=== PATIENT | female | born 1985 | race Two or more races ===

== ENCOUNTER 2023-11-05 06:05 | Inpatient (IN) | payer MEDICAID ==
[2023-11-03 09:35] LABS: Basophils # (auto) 0.1 10 ^3/uL (0-0.2); Eosinophils # (auto) 0.2 10 ^3/uL (0-0.8); Hematocrit 39.1 % (36.0-46.0); Hemoglobin 12.6 g/dL (12.2-16.2); Lymphocytes % (auto) 34.9 % (10.0-50.0); Mean Corpuscular Volume 80.7 fL (80.0-100.0); Monocytes # (auto) 0.4 10 ^3/uL (0-1.3); Nucleated Red Blood Cells % 0.1 %; Red Blood Cells 4.85 10^6/uL (4.0-5.20)
[2023-11-03 09:36] LABS: Basophils % (auto) 0.9 % (0.0-2.0); Eosinophils % (auto) 2.9 % (0.0-7.0); Lymphocytes # (auto) 1.9 10 ^3/uL (0.4-5.4); Mean Corpuscular Hgb Conc. 32.2 g/dL (32.0-36.0); Monocytes % (auto) 7.9 % (0.0-12.0); Neutrophils # (auto) 2.9 10 ^3/uL (1.6-8.6); Neutrophils % (auto) 53.4 % (37.0-80.0); Red Cell Distribution Width 14.9 % (11.8-14.3); White Blood Cell 5.5 10^3/uL (4.4-10.8)
[2023-11-03 09:42] LABS: Urine Bacteria FEW /hpf (None Seen); Urine Blood Negative /uL (Negative); Urine Clarity HAZY (Clear); Urine Color Colorless (Yellow); Urine Protein, UAD Negative (Negative); Urine Specific Gravity 1.008 (1.001-1.035); Urine Urobilinogen Normal (Negative); Urine WBC 2 /hpf (0 - 5)
[2023-11-03 10:06] LABS: Alanine Aminotransferase 18 U/L (7-40); Albumin 4.6 g/dL (3.2-4.8); Alkaline Phosphatase 82 U/L (46-116); Anion Gap 5 (5-15); Aspartate Aminotransferase 18 U/L (13-40); BUN/Creatinine Ratio 9.5 (10.0-20.0); Blood Urea Nitrogen 6 mg/dL (9-23); Calcium 9.6 mg/dL (8.5-10.1); Carbon Dioxide 27 mmol/L (20-30); Chloride 107 mmol/L (98-107); Glucose 93 mg/dL (74-106); INR 1.02 (0.9-1.15); Partial Thromboplastin Time 32.1 SEC (24.5-34.5); Potassium 4.4 mmol/L (3.5-5.1); Prothrombin Time 10.7 sec (9.3-11.8); Sodium 139 mmol/L (136-145)
[2023-11-03 10:07] LABS: Bilirubin, Total 0.5 mg/dL (0.2-1.0); Total Protein 7.1 g/dL (5.7-8.2)
[~2023-11-05] VITALS: Ht 162.6 cm; Wt 110.0 kg
[~2023-11-05 06:05] MED LIST: LEV100T PO
[2023-11-05] MEDS: ceFAZolin 2 GM/D5W100ml 100 ML IV ONE (06:22)
[2023-11-05] MEDS: SUCCINYLCHOLINE CHLORIDE 20 MG/ML 10ML VIAL IV ONE (06:42)
[2023-11-05] MEDS ORDERED: PROPOFOL 10 MG/ML 20 ML IV ONE (06:47)
[2023-11-05] MEDS ORDERED: fentaNYL CITRATE 100 MCG/2 ML VL ONE (06:48)
[2023-11-05] MEDS: LIDOCAINE W/ EPINEPHRINE 1% 20ML VIAL ONE (07:08)
[2023-11-05] MEDS: BUPIVACAINE 0.25% INJ 50ML VIAL ONE (07:08)
[2023-11-05] MEDS ORDERED: ONDANSETRON HCL 4 MG/2 ML VIAL ONE (07:31)
[2023-11-05] MEDS ORDERED: DexAMETHasone SOD PHOS 10MG/1ML VIAL INJ ONE (07:31)
[2023-11-05] MEDS ORDERED: ROCURONIUM 10MG/ML 10ML VIAL IV ONE (07:36)
[2023-11-05] MEDS ORDERED: MEPERIDINE HCL (50 MG/ML) 1 ML VIAL ONE (07:37)
[2023-11-05] MEDS ORDERED: ePHEDrine SULFATE 50 MG/ML AMP ONE (08:01)
[2023-11-05] MEDS ORDERED: GLYCOPYRROLATE 0.2 MG/ML 1ML VIAL ONE (08:04)
[2023-11-05] MEDS ORDERED: ESMOLOL HCL 10 ML IV ONE (08:18)
[2023-11-05] MEDS ORDERED: SUGAMMADEX 200mg/2ml Vial (100MG/ML) IV ONE (08:38)
[2023-11-05 08:57] VITALS: O2SAT 100
[2023-11-05] MEDS ORDERED: ONDANSETRON HCL 4 MG/2 ML VIAL IV PRN ×3 (09:15→10:45)
[2023-11-05] MEDS ORDERED: MEPERIDINE HCL (25 MG/ML) 1ML VIAL IV PRN (09:15)
[2023-11-05] MEDS: LEVOTHYROXINE SODIUM 100 MCG TAB PO SCH (10:00)
[2023-11-05] MEDS: HYDROmorphone HCL 2 MG/ML VL/or syr IV PRN ×2 (10:01→15:24)
[2023-11-05] MEDS ORDERED: HYDROmorphone HCL 2 MG/ML VL/or syr IV PRN (10:15)
[2023-11-05] MEDS: SODIUM CHLORIDE 0.9% 1,000 ML IV SCH (10:40)
[2023-11-05] MEDS ORDERED: D5W/SOD CHL 0.45%/KCL 20MEQ 1,000 ML IV SCH (10:45)
[2023-11-05 14:35] VITALS: BP 115/65; PULSE 83; RESP 17; TEMP 97.6; O2SAT 94
[2023-11-05] MEDS: ceFAZolin 1GM/50ML 50 ML IV SCH (15:03)
[2023-11-05 17:00] VITALS: BP 122/72; PULSE 78; RESP 17; TEMP 97.6; O2SAT 94
[2023-11-05 19:50] VITALS: BP 103/59; PULSE 89; PULSE 92; RESP 18; TEMP 98; O2SAT 95
[2023-11-05 22:00] VITALS: BP 103/59; PULSE 89; RESP 18; TEMP 98; O2SAT 95
[2023-11-06 05:00] VITALS: BP 119/65; PULSE 83; RESP 18; TEMP 98.1; O2SAT 94
[2023-11-06 07:17] LABS: Basophils # (auto) 0 10 ^3/uL (0-0.2); Basophils % (auto) 0.1 % (0.0-2.0); Eosinophils # (auto) 0 10 ^3/uL (0-0.8); Eosinophils % (auto) 0.1 % (0.0-7.0); Hematocrit 33.3 % (36.0-46.0); Hemoglobin 10.9 g/dL (12.2-16.2); Lymphocytes # (auto) 1.6 10 ^3/uL (0.4-5.4); Lymphocytes % (auto) 15.9 % (10.0-50.0); Mean Corpuscular Hemoglobin 26.4 pg (28.0-32.0); Mean Corpuscular Hgb Conc. 32.9 g/dL (32.0-36.0); Mean Corpuscular Volume 80.3 fL (80.0-100.0); Monocytes # (auto) 0.8 10 ^3/uL (0-1.3); Monocytes % (auto) 8.1 % (0.0-12.0); Neutrophils # (auto) 7.6 10 ^3/uL (1.6-8.6); Neutrophils % (auto) 75.8 % (37.0-80.0); Nucleated Red Blood Cells % 0.1 %; Red Blood Cells 4.14 10^6/uL (4.0-5.20); Red Cell Distribution Width 14.2 % (11.8-14.3)
[2023-11-06 07:28] LABS: Alanine Aminotransferase 30 U/L (7-40); Alkaline Phosphatase 70 U/L (46-116); Anion Gap 8 (5-15); Aspartate Aminotransferase 34 U/L (13-40); Calcium 8.9 mg/dL (8.5-10.1); Carbon Dioxide 24 mmol/L (20-30); Chloride 107 mmol/L (98-107); Glucose 95 mg/dL (74-106); Potassium 3.5 mmol/L (3.5-5.1); Sodium 139 mmol/L (136-145)
[2023-11-06 07:29] LABS: Bilirubin, Total 0.6 mg/dL (0.2-1.0); Total Protein 6.1 g/dL (5.7-8.2)
[2023-11-06 07:45] LABS: BUN/Creatinine Ratio 9.4 (10.0-20.0); Blood Urea Nitrogen < 5 mg/dL (9-23)
[2023-11-06 08:00] VITALS: PULSE 73; RESP 18; O2SAT 95
[2023-11-06 10:25] VITALS: BP 104/55; PULSE 93; RESP 19; TEMP 98.4; O2SAT 96
[2023-11-06 10:27] LABS: CRP High Sensitivity 0.83 mg/dL (<1.0)
[2023-11-06] MEDS: ACETAMINOPHEN 325 MG TAB PO PRN ×2 (10:37→19:40)
[2023-11-06] MEDS: POTASSIUM CHL 20 Meq TABLET PO ONE (10:38)
[2023-11-06] MEDS ORDERED: HYDROcodone-ACET 5/325MG TAB PO PRN (11:15)
[2023-11-06 11:53] LABS: Magnesium 1.7 mg/dL (1.6-2.6)
[2023-11-06 13:08] VITALS: BP 109/54; PULSE 84; RESP 19; TEMP 98.7; O2SAT 97
[2023-11-06] MEDS: DOCUSATE SOD 100 MG CAP PO PRN (19:40)
[2023-11-06 19:50] VITALS: BP 112/56; PULSE 106; PULSE 84; PULSE 93; RESP 18; TEMP 99.1; O2SAT 93
[2023-11-06 22:00] VITALS: BP 112/56; PULSE 84; RESP 18; TEMP 99.1; O2SAT 93
[2023-11-07 05:00] VITALS: BP 109/72; PULSE 84; RESP 18; TEMP 98.4; O2SAT 94
[2023-11-07 06:08] LABS: Basophils # (auto) 0 10 ^3/uL (0-0.2); Eosinophils # (auto) 0 10 ^3/uL (0-0.8); Hemoglobin 10.3 g/dL (12.2-16.2); Neutrophils # (auto) 4.8 10 ^3/uL (1.6-8.6)
[2023-11-07 06:10] LABS: Basophils % (auto) 0.4 % (0.0-2.0); Eosinophils % (auto) 0.6 % (0.0-7.0); Hematocrit 31.7 % (36.0-46.0); Lymphocytes # (auto) 2.1 10 ^3/uL (0.4-5.4); Lymphocytes % (auto) 27.1 % (10.0-50.0); Mean Corpuscular Hemoglobin 25.8 pg (28.0-32.0); Mean Corpuscular Hgb Conc. 32.4 g/dL (32.0-36.0); Mean Corpuscular Volume 79.8 fL (80.0-100.0); Monocytes # (auto) 0.8 10 ^3/uL (0-1.3); Monocytes % (auto) 9.8 % (0.0-12.0); Neutrophils % (auto) 62.1 % (37.0-80.0); Nucleated Red Blood Cells % 0.1 %; Red Blood Cells 3.97 10^6/uL (4.0-5.20); Red Cell Distribution Width 14.9 % (11.8-14.3); White Blood Cell 7.7 10^3/uL (4.4-10.8)
[2023-11-07 06:28] LABS: Alanine Aminotransferase 22 U/L (7-40); Alkaline Phosphatase 68 U/L (46-116); Anion Gap 5 (5-15); Calcium 8.5 mg/dL (8.7-10.4); Carbon Dioxide 26 mmol/L (20-30); Chloride 107 mmol/L (98-107); Glucose 96 mg/dL (74-106); Magnesium 1.7 mg/dL (1.6-2.6); Potassium 3.9 mmol/L (3.5-5.1); Sodium 138 mmol/L (136-145)
[2023-11-07 06:29] LABS: Albumin 3.8 g/dL (3.2-4.8); Aspartate Aminotransferase 18 U/L (13-40); Bilirubin, Total 0.5 mg/dL (0.2-1.0); Total Protein 6.1 g/dL (5.7-8.2)
[2023-11-07 06:30] LABS: BUN/Creatinine Ratio 9.8 (10.0-20.0); Blood Urea Nitrogen < 5 mg/dL (9-23)
[2023-11-07 07:30] VITALS: BP 136/73; PULSE 76; PULSE 96; RESP 18; TEMP 98.4; O2SAT 92
[2023-11-07 08:45] VITALS: BP 136/73; PULSE 76; RESP 18; TEMP 98.3; O2SAT 92
[2023-11-07 12:53] VITALS: BP 121/67; PULSE 85; RESP 17; TEMP 98.1; O2SAT 95
[2023-11-07] MEDS ORDERED: guaiFENesin-DM 100/10mg/5ml SYR PO PRN (14:30)
[2023-11-07] MEDS: guaiFENesin-DM 100/10mg/5ml SYR PO ONE (14:30)
[2023-11-07] MEDS ORDERED: CEPH250C PO (15:02)
[2023-11-07 15:58] VITALS: BP 136/73; PULSE 76; RESP 18; TEMP 36.7; O2SAT 92
[2023-11-07 17:00] VITALS: BP 130/82; PULSE 92; RESP 18; TEMP 98.4; O2SAT 95
== END 2023-11-07 17:30 | disposition home or self-care (01) | DRG 263 ==
LOC: SUR 06:05 → OVERFLOW 09:26 → TELE-CENTR 14:04
PROVIDERS: ADMIT Internal Medicine Geriatric Medicine; ATTEND Internal Medicine Geriatric Medicine
PROC: 0FT44ZZ Resection of Gallbladder, Percutaneous Endoscopic Approach (ICD-10-PCS; principal; 2023-11-05 07:29)
DX: K80.10 Calculus of gallbladder with chronic cholecystitis without obstruction (principal); E03.9 Hypothyroidism, unspecified; E78.2 Mixed hyperlipidemia; Z68.41 Body mass index [BMI] 40.0-44.9, adult; R00.0 Tachycardia, unspecified; E66.9 Obesity, unspecified; E78.1 Pure hyperglyceridemia; Z98.891 History of uterine scar from previous surgery
CPT/HCPCS: 36415; 71045; 80053; 80061; 81001; 81025; 83735; 84443; 85025; 85610; 85730; 86141; 86850; 86900; 86901; 87070; 87075; 87205; G0378; J0330; J1100; J2405; J2704; J3490